=== PATIENT | female | born 1995 | race Caucasian/White ===

== ENCOUNTER 2024-12-27 16:04 | Emergency (ER) | payer BC ==
[2024-12-27] MEDS: Diphtheria,Pertussis(Acell),Tetanus Vaccine 0.5 ML Syringe IM ONE (17:49)
[2024-12-27] MEDS: Amoxicillin/Clavulanate K 875-125 MG Tab PO ONE (17:49)
== END 2024-12-27 17:54 | disposition home or self-care (01) ==
LOC: JD.ED 16:04
DX: S50.811A Abrasion of right forearm, initial encounter (principal); Z23 Encounter for immunization; W55.03XA Scratched by cat, initial encounter; Y93.89 Activity, other specified
CPT/HCPCS: 90471; 90715; 93005; 99284; A9270; 93010; 99283